=== PATIENT | male | born 1975 | race American Indian/Alaskan Native ===

== ENCOUNTER 2021-02-15 15:26 | Emergency (ER) | payer OTHER ==
[2021-02-15 16:11] LABS: Bilirubin,Urine NEG (Negative); Blood,Urine NEG (Negative); Color,Urine Colorless (Yellow); Protein,Urine <15 mg/dL mg/dL (Negative); Urobilinogen,Urine < 2.0 mg/dL (<2.0); WBC,Urine < 1.0 /HPF (0.0-6.0)
--- NOTE | 2021-02-15 16:19 | Emergency Department Report ---
ED Shortness of Breath HPI - General Chief Complaint: Dyspnea/Respdistress Stated Complaint: SOB/HBP Time Seen by Provider: 02/15/21 16:05 Source: patient, EMS Mode of arrival: Stretcher Limitations: No Limitations - History of Present Illness Initial Comments: Chief complaint: "I need my blood pressure to go down. I have been short of breath." HPI: This is a 46-year-old male with history of hypertension, MO, CAD status post PCI, tobacco dependence who presents with shortness of breath. Patient has been noncompliant with his medication for over 2 weeks. He also states that he has had salty food. He has had shortness of breath. Worse at rest. Improved with ambulation and exertion. He denies cough. Denies wheezing. He denies fever. No sick contacts. Patient has had shortness of breath off and on for several months. He denies chest pain. He denies leg swelling. No history of heart failure. He was diagnosed and treated for MO at [facility] 5 to 6 years ago. He has 2 cardiac stents and "2 different arteries". 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 He was formally followed by [facility]. He lost his job 1 year ago. He recently gained employment. He now has health insurance. He does not have a primary care physician. Patient also explains that he has had a lot of anxiety for the last 2 years especially around driving. He is not driving on interstate for the past 2 years. Home medications: losartanHCT 100 mg25 Metoprolol 50 mg Amlodipine 10 mg Atorvastatin 20 mg Clopidogrel Complaint: shortness of breath -: This afternoon Severity: mild Consistency: now resolved Improves With: other (Exertion) Worsens With: other (Sitting at rest) Known History Of: other (Myocardial infarction CAD) Context: medication noncompliance - Related Data Home Medications Medication Instructions Recorded Confirmed Last Taken Atorvastatin [Lipitor] 20 mg PO QHS 02/15/21 02/15/21 Unknown Clopidogrel 75 mg PO DAILY 02/15/21 02/15/21 Unknown Losartan-Hctz 100-25 mg Tab 1 tab PO DAILY 02/15/21 02/15/21 Unknown Metoprolol [Lopressor TAB] 50 mg PO BID 02/15/21 02/15/21 Unknown amLODIPine [Norvasc] 10 mg PO DAILY 02/15/21 02/15/21 Unknown Previous Rx's Medication Instructions Recorded Last Taken Type AtorvaSTATin [Lipitor] 20 mg PO QHS #90 tab 02/15/21 Unknown Rx Clopidogrel [Plavix] 75 mg PO QDAY #90 tablet 02/15/21 Unknown Rx Losartan/Hydrochlorothiazide 1 each PO DAILY #90 tablet 02/15/21 Unknown Rx [Losartan-Hctz 100-25 mg Tab] Metoprolol Xl [Metoprolol 50 mg PO QDAY #90 tablet 02/15/21 Unknown Rx SUCCINATE ER TAB] amLODIPine 10 mg PO DAILY #90 tab 02/15/21 Unknown Rx Allergies Allergy/AdvReac Type Severity Reaction Status Date / Time No Known Allergies Allergy Unverified 02/15/21 15:42 ED Review of Systems ROS: Stated complaint: SOB/HBP Other details as noted in HPI Comment: All other systems reviewed and negative Constitutional: denies: fever, malaise Respiratory: shortness of breath. denies: cough Cardiovascular: denies: chest pain Gastrointestinal: denies: abdominal pain, nausea, vomiting Neurological: headache (Chronic daily headaches) ED Past Medical Hx - Past Medical History Previous Medical History?: Yes Hx Hypertension: Yes Hx Heart Attack/AMI: Yes (2016) - Surgical History Hx Coronary Stent: Yes (x2) - Family History Family history: hypertension - Social History Smoking Status: Current Every Day Smoker - Medications Home Medications: Home Medications Medication Instructions Recorded Confirmed Last Taken Type AtorvaSTATin [Lipitor] 20 mg PO QHS #90 tab 02/15/21 Unknown Rx Atorvastatin [Lipitor] 20 mg PO QHS 02/15/21 02/15/21 Unknown History Clopidogrel 75 mg PO DAILY 02/15/21 02/15/21 Unknown History Clopidogrel [Plavix] 75 mg PO QDAY #90 tablet 02/15/21 Unknown Rx Losartan-Hctz 100-25 mg Tab 1 tab PO DAILY 02/15/21 02/15/21 Unknown History Losartan/Hydrochlorothiazide 1 each PO DAILY #90 tablet 02/15/21 Unknown Rx [Losartan-Hctz 100-25 mg Tab] Metoprolol Xl [Metoprolol 50 mg PO QDAY #90 tablet 02/15/21 Unknown Rx SUCCINATE ER TAB] Metoprolol [Lopressor TAB] 50 mg PO BID 02/15/21 02/15/21 Unknown History amLODIPine 10 mg PO DAILY #90 tab 02/15/21 Unknown Rx amLODIPine [Norvasc] 10 mg PO DAILY 02/15/21 02/15/21 Unknown History ED Physical Exam - General Limitations: No Limitations General appearance: alert, in no apparent distress - Head Head exam: Present: atraumatic, normocephalic - Eye Eye exam: Present: normal appearance - ENT ENT exam: Present: mucous membranes moist - Neck Neck exam: Present: normal inspection, full ROM - Respiratory Respiratory exam: Present: normal lung sounds bilaterally. Absent: respiratory distress, wheezes, rales, rhonchi, stridor - Cardiovascular Cardiovascular Exam: Present: regular rate, normal rhythm, normal heart sounds. Absent: systolic murmur, diastolic murmur, rubs, gallop - GI/Abdominal GI/Abdominal exam: Present: soft, normal bowel sounds. Absent: distended, tenderness, guarding, rebound - Rectal Rectal exam: Present: deferred - Extremities Exam Extremities exam: Present: pedal edema - Neurological Exam Neurological exam: Present: alert, oriented X3 - Psychiatric Psychiatric exam: Present: normal affect, normal mood - Skin Skin exam: Present: warm, dry, intact, normal color. Absent: rash ED Course Vital Signs 02/15/21 02/15/21 16:07 16:50 Temperature 98.1 F Pulse Rate 77 76 Respiratory 20 Rate Blood Pressure 191/111 Blood Pressure 210/126 [Left] O2 Sat by Pulse 98 Oximetry ED Medical Decision Making - Lab Data Result diagrams: 02/15/21 16:27 02/15/21 16:27 Laboratory Results - last 24 hr 02/15/21 02/15/21 02/15/21 16:02 16:27 16:27 WBC 9.7 RBC 4.58 Hgb 14.5 Hct 41.9 MCV 92 MCH 32 MCHC 35 H RDW 13.7 Plt Count 261 Lymph % (Auto) 15.7 [place] % (Auto) 8.1 H Eos % (Auto) 1.3 Baso % (Auto) 0.7 Lymph # (Auto) 1.5 [place] # (Auto) 0.8 Eos # (Auto) 0.1 Baso # (Auto) 0.1 Seg Neutrophils % 74.2 H Seg Neutrophils # 7.2 Sodium 138 Potassium 4.7 Chloride 102.6 Carbon Dioxide 31 H Anion Gap 9 BUN 12 Creatinine 0.8 Estimated GFR > 60 BUN/Creatinine Ratio 15 Glucose 103 H Calcium 8.7 Troponin T < 0.010 NT-Pro-B Natriuret Pep Urine Color Colorless Urine Turbidity Clear Urine pH 7.0 Ur Specific [place] 1.002 L Urine Protein <15 mg/dl Urine Glucose (UA) Neg Urine Ketones Neg Urine Blood Neg Urine Nitrite Neg Urine Bilirubin Neg Urine Urobilinogen < 2.0 Ur Leukocyte Esterase Neg Urine WBC (Auto) < 1.0 Urine RBC (Auto) 1.0 U Epithel Cells (Auto) < 1.0 02/15/21 02/15/21 16:27 17:25 WBC RBC Hgb Hct MCV MCH MCHC RDW Plt Count Lymph % (Auto) [place] % (Auto) Eos % (Auto) Baso % (Auto) Lymph # (Auto) [place] # (Auto) Eos # (Auto) Baso # (Auto) Seg Neutrophils % Seg Neutrophils # Sodium Potassium Chloride Carbon Dioxide Anion Gap BUN Creatinine Estimated GFR BUN/Creatinine Ratio Glucose Calcium Troponin T < 0.010 NT-Pro-B Natriuret Pep 208.8 Urine Color Urine Turbidity Urine pH Ur Specific [place] Urine Protein Urine Glucose (UA) Urine Ketones Urine Blood Urine Nitrite Urine Bilirubin Urine Urobilinogen Ur Leukocyte Esterase Urine WBC (Auto) Urine RBC (Auto) U Epithel Cells (Auto) - EKG Data -: EKG Interpreted by Pa EKG shows normal: sinus rhythm Rate: normal - EKG Data Interpretation: LVH 02/15/21 17:22 EKG interpreted by pa EKG obtained 1716 NSR rate 70 bpm left axis deviation no ST elevation +u wave nl PA interval - Radiology Data Radiology results: report reviewed Chest radiograph: No acute findings according to radiology impression - Medical Decision Making 1. Hypertensive urgency due to medication noncompliance. No evidence of endorgan damage. 2. Shortness of breath: Differential diagnosis includes heart failure, COPD, anxiety reaction. No persistent symptoms to indicate ACS or pulmonary embolism. troponin x 2 negative referred to sheet metal layout worker and internal medicine physician BNP normal, cxr wnl I have provided 90-day prescriptions of all 5 medications. Patient is discharged home in stable condition. Critical care attestation.: If time is entered above; I have spent that time in minutes in the direct care of this critically ill patient, excluding procedure time. ED Disposition Clinical Impression: Hypertensive urgency, History of coronary artery disease, Dyspnea Disposition: DC-01 TO HOME OR SELFCARE Is pt being admited?: No Does the pt Need Aspirin: No Condition: Stable Instructions: Shortness of Breath, Adult, [id number], Hypertension, Adult, [id number] Prescriptions: AtorvaSTATin [Lipitor] 20 mg PO QHS #90 tab amLODIPine 10 mg PO DAILY #90 tab Losartan/Hydrochlorothiazide [Losartan-Hctz 100-25 mg Tab] 1 each PO DAILY #90 tablet Metoprolol Xl [Metoprolol SUCCINATE ER TAB] 50 mg PO QDAY #90 tablet Clopidogrel [Plavix] 75 mg PO QDAY #90 tablet Referrals: GOLDY DYER MD [Staff Physician] - 3-5 Days JUAN F SON MD [Staff Physician] - 3-5 Days
--- NOTE | 2021-02-15 16:33 | XRay Report ---
CHEST 1 VIEW 02/15/2021 4:06 PM INDICATION / CLINICAL INFORMATION: Dyspnea. COMPARISON: None available. FINDINGS: SUPPORT DEVICES: None. HEART / MEDIASTINUM: No significant abnormality. LUNGS / PLEURA: No significant pulmonary or pleural abnormality. No pneumothorax. ADDITIONAL FINDINGS: No significant additional findings. IMPRESSION: 1. No acute findings. Signer Name: Stanislav Hinson MD Signed: 02/15/2021 4:28 PM Workstation Name: [id number]
[2021-02-15 16:37] LABS: Basophils # (Auto) 0.1 K/mm3 (0.0-0.1); Basophils % (Auto) 0.7 % (0.0-1.8); Eosinophils # (Auto) 0.1 K/mm3 (0.0-0.4); Eosinophils % (Auto) 1.3 % (0.0-4.3); Hematocrit 41.9 % (35.5-45.6); Hemoglobin 14.5 gm/dl (11.8-15.2); Lymphocytes # (Auto) 1.5 K/mm3 (1.2-5.4); Lymphocytes % (Auto) 15.7 % (13.4-35.0); Mean Corpuscular HGB Conc 35 % (32-34); Mean Corpuscular Volume 92 fl (84-94); Monocytes # (Auto) 0.8 K/mm3 (0.0-0.8); Monocytes % (Auto) 8.1 % (0.0-7.3); Platelet Count 261 K/mm3 (140-440); Red Blood Count 4.58 M/mm3 (3.65-5.03); Red Cell Distribution Width 13.7 % (13.2-15.2)
[2021-02-15 16:52] VITALS: BP 191/111
[2021-02-15 16:57] LABS: BUN/Creatinine Ratio 15; Blood Urea Nitrogen 12 mg/dL (9-20); Calcium 8.7 mg/dL (8.4-10.2); Hemolysis Index 12
--- NOTE | 2021-02-18 13:30 | Electrocardiograph Report ---
[facility] Test Date: 2021-02-15 Test Time: 17:16:45 Pat Name: MARQUIS JIMENEZ Department: Room: Gender: M Student Life Dean: MELANIA : 1975 Requested By: CHAYO BUCHANAN Order Number: [id number] Reading MD: Long Momin Measurements Intervals [place] Rate: 68 P: 20 CA: 177 QRS: -32 QRSD: 98 T: 58 QT: 446 QTc: 473 Interpretive Statements Sinus rhythm Left ventricular hypertrophy No previous ECG available for comparison Electronically Signed On 02-18-2021 13:30:20 EDT by Long Momin
== END 2021-02-15 18:47 | disposition home or self-care (01) ==
LOC: ED 15:26
DX: I16.0 Hypertensive urgency (principal); I25.10 Atherosclerotic heart disease of native coronary artery without angina pectoris; I25.2 Old myocardial infarction; F17.200 Nicotine dependence, unspecified, uncomplicated; Z79.899 Other long term (current) drug therapy
CPT/HCPCS: 36415; 71045; 80048; 81001; 83880; 84484; 85025; 93005